=== PATIENT | male | born 1955 | race Caucasian/White ===

== ENCOUNTER 2019-07-12 08:54 | Outpatient (CLI) | payer BC ==
[2019-07-12] MEDS ORDERED: Iopamidol 370 76% 100 ML VIAL ONE (09:58)
--- NOTE | 2019-07-12 11:40 | CT ---
CT OF THE ABDOMEN AND PELVIS WITH AND WITHOUT IV CONTRAST: INDICATION: History of renal stones with fall and back pain and hematuria. FINDINGS: There is an 8.0 x 5 mm stone involving the right UPJ. There is mild right hydronephrosis. There are numerous nonobstructing calculi bilaterally. The largest within the left kidney is seen measuring 4 mm. No additional ureteral stone is evident. No gross urothelial lesion is noted. There is a prom inent right inferior pole peripelvic cyst measuring 3.8 cm. There is a right hepatic lobe cyst within segment 6 measuring 1.4 cm. A subcentimeter cyst seen in t he right hepatic dome on image 11 of series 3. There is a small hiatal hernia. There is some subseg mental volume loss involving both lower lobes. The pancreas, adrenal glands, and spleen appear withi n normal limits. No free fluid or enlarged lymph nodes are evident. There are mild vascular calcifications involving the abdominal aorta. The prostate gland is enlarged measuring 7 cm. There is moderate distention of the bladder. The appendix is not definitely visual ized. There is scattered degenerative and osteoarthritic change. IMPRESSION: 1. Proximal right ureteropelvic junction stone measuring 8 x 5 mm with mild right hydronephrosis. 2. Bilateral nephrolithiasis. 3. Right inferior pole peripelvic cyst. 4. Right hepatic lobe cyst. 5. Small hiatal hernia. 6. Prostate enlargement with moderate distention of the bladder. 7. No definite acute fracture seen. POS: [facility]
== END 2019-07-12 08:55 | disposition home or self-care (01) ==
LOC: CT 08:54
PROVIDERS: ATTEND Family Medicine
DX: R31.0 Gross hematuria (principal); N13.2 Hydronephrosis with renal and ureteral calculous obstruction; N28.1 Cyst of kidney, acquired; K76.89 Other specified diseases of liver; K44.9 Diaphragmatic hernia without obstruction or gangrene; N40.0 Benign prostatic hyperplasia without lower urinary tract symptoms; N32.89 Other specified disorders of bladder
CPT/HCPCS: 74178; Q9967

== ENCOUNTER 2019-07-16 09:17 | Outpatient (CLI) | payer BC ==
--- NOTE | 2019-07-16 09:43 | RAD ---
EXAM: XR Abdomen 1 View/KUB PROVIDED CLINICAL HISTORY: Right renal calculi. COMPARISON: CT abdomen and pelvis on 07/12/2019. FINDINGS: Renal shadows are mostly obscured by bowel gas, but calcifications are seen overlying each renal german ecting system compatible with bilateral renal calculi. There is an irregular calcification seen to the right of the L2-3 intervertebral disc space which was seen on recent CT abdomen and pelvis and sh own to represent a proximal right ureteral calculus. This is overall unchanged in position. Calcifications overlie the pelvis likely related to phleboliths and prostate calcifications. Nonspecific bowel gas pattern is present. Mild degenerative change seen in the lumbar spine. IMPRESSION: 1. Bilateral nephrolithiasis with proximal right ureteral calculus stable in position compared to CT exam on 07/12/2019.
== END 2019-07-16 09:18 | disposition home or self-care (01) ==
LOC: BICRAD 09:17
PROVIDERS: ATTEND Urology
DX: N20.2 Calculus of kidney with calculus of ureter (principal)
CPT/HCPCS: 36415; 74018; 80048; 81001; 87086

== ENCOUNTER 2019-07-22 11:42 | Outpatient (CLI) | payer BC ==
--- NOTE | 2019-07-22 13:42 | RAD ---
ABDOMEN ONE VIEW: History: Ureteral calculus, right. Comparison: 07-16-2019 FINDINGS: Stable appearing bilateral nonobstructing renal calculi. Stable appearing right ureteral calculus at approximately the L2-3 disc space level. Overall stable appearance. IMPRESSION: Stable bilateral renal and right ureteral calculus. POS: [facility]
== END 2019-07-22 11:43 | disposition home or self-care (01) ==
LOC: BICRAD 11:42
PROVIDERS: ATTEND Urology
DX: N20.2 Calculus of kidney with calculus of ureter (principal)
CPT/HCPCS: 74018

== ENCOUNTER 2019-07-24 06:21 | Outpatient (CLI) | payer BC, OTHER ==
[2019-07-24 11:29] LABS: Hemoglobin 14.2 g/dL (14.0-18.0); Mean Corpuscular HGB CONC 32.9 g/dL (32.0-36.0); Platelet Count 185 thou/uL (130-400); Red Blood Cell (RBC) Count 4.29 mill/uL (4.70-6.10); White Blood Cell (WBC) Count 4.3 thou/uL (4.8-10.8)
[2019-07-24 11:37] LABS: PTT 33.1 SEC (22.9-36.1); Prothrombin Time 12.8 sec (12.0-14.7)
[2019-07-24 11:58] LABS: Anion Gap 10 mmol/L (10-20); BUN (Urea Nitrogen) 17 mg/dL (8.4-25.7); Calc. Creatinine Clearance 0 mL/min (70-130); Calcium 9.5 mg/dL (7.8-10.44); Carbon Dioxide 23 mmol/L (23-31); Chloride 108 mmol/L (98-107); Estimated GFR-MDRD 75; Glucose 97 mg/dL (80-115); Potassium 4.2 mmol/L (3.5-5.1); Sodium 137 mmol/L (136-145)
[2019-07-25 11:50] LABS: SARS-CoV-2 MS2 Positive; SARS-CoV-2 N Gene Negative; SARS-CoV-2 S Gene Negative; SARS-CoV-2 orf1ab Negative
== END 2019-07-24 06:22 | disposition home or self-care (01) ==
LOC: LABBT 06:21
PROVIDERS: ATTEND Urology
DX: Z01.818 Encounter for other preprocedural examination (principal); Z11.59 Encounter for screening for other viral diseases; Z12.5 Encounter for screening for malignant neoplasm of prostate; N20.2 Calculus of kidney with calculus of ureter; R31.0 Gross hematuria; N40.1 Benign prostatic hyperplasia with lower urinary tract symptoms; R35.0 Frequency of micturition; R35.1 Nocturia; N28.1 Cyst of kidney, acquired
CPT/HCPCS: 80048; 85027; 85610; 85730; 87635; 93005; 93010; U0003

== ENCOUNTER 2020-06-16 12:02 | Outpatient (CLI) | payer MEDICARE, BC | END 2020-06-16 12:03 | disposition home or self-care (01) | LOC: BICRAD 12:02 | PROVIDERS: ATTEND Urology | DX: N20.2 Calculus of kidney with calculus of ureter (principal); Z00.00 Encounter for general adult medical examination without abnormal findings; E78.00 Pure hypercholesterolemia, unspecified; I10 Essential (primary) hypertension; Z12.5 Encounter for screening for malignant neoplasm of prostate; Z79.899 Other long term (current) drug therapy | CPT/HCPCS: 74018; 80061; 81003; 83036; G0103; 36415; 80053; 84443; 85025 ==

== ENCOUNTER 2020-06-29 13:40 | Outpatient (CLI) | payer MEDICARE, BC | END 2020-06-29 13:41 | disposition home or self-care (01) | LOC: BICCT 13:40 | PROVIDERS: ATTEND Urology | DX: N20.0 Calculus of kidney (principal); N28.1 Cyst of kidney, acquired; K76.89 Other specified diseases of liver; N40.0 Benign prostatic hyperplasia without lower urinary tract symptoms | CPT/HCPCS: 74176 ==